=== PATIENT | male | born 1960 | race Caucasian/White ===

== ENCOUNTER 2018-02-09 20:04 | Inpatient (IN) | payer MEDICARE, MEDICAID ==
[~2018-02-09] VITALS: Ht 175.3 cm; Wt 130.7 kg
[~2018-02-09 20:04] MED LIST: ASPI-621 PO; ATOR40TA78 PO; CELE200C PO; DIGO125T81 PO; DIGO250T12 PO; FOLI-17 PO; FURO40TA6 PO; IRBE150T25 PO; MAGN400T7 PO; METH2.5T PO; METO25TA35 PO; METO25TA91 PO; NICO-487 TD; OXYC-307 PO; POTA10TA5 PO; PRAS10TA4 PO; VENL150C PO; WARF1TAB74 PO; WARF2TAB99 PO
[2018-02-09] MEDS ORDERED: AMIODARONE 900 MG in DEXTROSE 5% 500 ML IV PRN (20:11)
[2018-02-09 20:20] LABS: BASOPHILS # (AUTO) 0.03 x10^3/uL (0-0.1); BASOPHILS % (AUTO) 0 % (0-1); EOSINOPHILS # (AUTO) 0.08 x10^3/uL (0-0.4); EOSINOPHILS % (AUTO) 1 % (1-7); LYMPHOCYTES # (AUTO) 1.49 x10^3/uL (1-3.4); LYMPHOCYTES % (AUTO) 15 % (22-44); MD NO; MEAN CORPUSCULAR HEMOGLOBIN 31.9 pg (27.5-34.5); MEAN CORPUSCULAR HGB CONC 34.2 g/dL (33.2-36.2); MEAN CORPUSCULAR VOLUME 93.4 fL (81-97); MEAN PLATELET VOLUME 7.4 fL (7.4-10.4); MONOCYTES # (AUTO) 0.66 x10^3/uL (0.2-0.8); MONOCYTES % (AUTO) 7 % (2-9); NEUTROPHILS % (AUTO) 78 % (42-75); PLATELET COUNT 302 x10^3/uL (130-400); RED BLOOD COUNT 4.89 x10^6/uL (4.38-5.82); RED CELL DISTRIBUTION WIDTH 17.2 % (9.4-14.8)
[2018-02-09 20:28] LABS: INTERNATIONAL NORMALIZED RATIO 2.63 (0.93-1.1); PROTHROMBIN TIME 26.8 Seconds (9.6-11.5)
[2018-02-09] MEDS ORDERED: OXYcodone/APAP 5/325MG TABLET ONE (20:28)
[2018-02-09] MEDS ORDERED: FILTER 0.22 MICRON IV ONE (20:30)
[2018-02-09] MEDS ORDERED: OXYcodone/APAP 5/325MG TABLET PO ONE (20:30)
[2018-02-09] MEDS ORDERED: SODIUM CHLORIDE FLUSH 10ML SYR IVF ONE (20:30)
[2018-02-09 20:33] LABS: ALANINE AMINOTRANSFERASE 32 U/L (12-78); ANION GAP 10 mmol/L (5-15); CALCIUM 8.4 mg/dL (8.5-10.1); CHLORIDE 108 mmol/L (98-107); CREATININE 1.07 mg/dL (0.7-1.3)
[2018-02-09 20:37] LABS: ALKALINE PHOSPHATASE 109 U/L (45-117); TOTAL PROTEIN 7.6 g/dL (6.4-8.2); TROPONIN I < 0.015 ng/mL (0.000-0.045)
[2018-02-09] MEDS ORDERED: ALBU18HF INH (21:24)
[2018-02-09] MEDS ORDERED: ASPI-515 PO (21:24)
[2018-02-09] MEDS ORDERED: WARF2.5T73 PO (21:24)
[2018-02-09] MEDS ORDERED: FLUT1DIS5 IH (21:24)
[2018-02-09] MEDS ORDERED: PROC25SU25 PR (21:24)
[2018-02-09] MEDS ORDERED: LORA-445 PO (21:24)
[2018-02-09] MEDS ORDERED: CELE200C PO (21:24)
[2018-02-09 22:15] VITALS: BP 120/61
[2018-02-09] MEDS ORDERED: MORP30CP12 PO (23:52)
[2018-02-10] MEDS ORDERED: DOCUSATE 100 MG CAPSULE PO PRN (00:30)
[2018-02-10] MEDS ORDERED: hydrALAzine 20 MG/ML, 1ML IVPush PRN (00:30)
[2018-02-10] MEDS ORDERED: morphine SULFATE 10 MG/ML, 1ML IVPush PRN (00:30)
[2018-02-10] MEDS ORDERED: BISACODYL 10 MG SUPP PR PRN (00:30)
[2018-02-10] MEDS ORDERED: ACETAMINOPHEN 325 MG TABLET PO PRN (00:30)
[2018-02-10] MEDS ORDERED: POLYETHYLENE GLYCOL 17 GM PACKET PO PRN (00:30)
[2018-02-10] MEDS ORDERED: LORazepam 0.5MG TABLET PO SCH (00:30)
[2018-02-10] MEDS ORDERED: ATORVASTATIN 40 MG TABLET PO SCH (00:30)
[2018-02-10 00:59] LABS: FREE T4 (FREE THYROXINE) 1.13 ng/dL (0.76-1.46); THYROID STIMULATING HORMONE 0.192 mIU/L (0.358-3.740)
[2018-02-10] MEDS ORDERED: AMIODARONE 450 MG in DEXTROSE 5% 241 ML IV PRN (01:00)
[2018-02-10] MEDS ORDERED: WARFARIN MECH. VALVE PROTOCOL 2.5 to 3.5 XX PRN (01:00)
[2018-02-10 01:08] VITALS: BP 144/85
[2018-02-10] MEDS: FUROSEMIDE 40 MG TABLET PO SCH ×3 (01:12→15:15)
[2018-02-10 01:15] LABS: HEMOGLOBIN A1C 5.3 % (4.2-6.3)
[2018-02-10] MEDS ORDERED: ALBUTEROL SULFATE 2.5 MG/3 ML ONE (01:30)
[2018-02-10] MEDS ORDERED: ALBUTEROL SULFATE 2.5MG/0.5ML NPPB PRN (01:30)
[2018-02-10] MEDS ORDERED: WARFARIN 2.5 MG TABLET PO-COUM ONE ×2 (01:30→18:00)
[2018-02-10] MEDS ORDERED: ALBUTEROL SULFATE 2.5 MG/3 ML NPPB PRN (02:00)
[2018-02-10 02:35] LABS: MICROSCOPIC AUTO
[2018-02-10 02:51] LABS: CULTURE INDICATED? NO
[2018-02-10 05:07] LABS: TROPONIN I < 0.015 ng/mL (0.000-0.045)
[2018-02-10] MEDS ORDERED: METOPROLOL SUCCINATE 25 MG TAB.ER.24H PO SCH (06:00)
[2018-02-10 06:39] VITALS: BP 121/76
[2018-02-10] MEDS: OXYcodone IR 5MG TABLET PO PRN ×2 (06:44→13:30)
[2018-02-10 07:18] VITALS: BP 143/73
[2018-02-10 07:55] LABS: INTERNATIONAL NORMALIZED RATIO 2.43 (0.93-1.1); PROTHROMBIN TIME 24.8 Seconds (9.6-11.5)
[2018-02-10] MEDS ORDERED: POTASSIUM CHLORIDE 20 MEQ TAB.ER.PRT PO ONE (08:30)
[2018-02-10] MEDS ORDERED: FURO40TA6 PO (08:53)
[2018-02-10] MEDS ORDERED: PREG100C PO (08:53)
[2018-02-10] MEDS ORDERED: ASPIRIN 81 MG TABLET EC PO SCH (09:00)
[2018-02-10] MEDS ORDERED: AMIODARONE 200 MG TABLET PO SCH (09:00)
[2018-02-10] MEDS ORDERED: FOLIC ACID 1 MG TABLET PO SCH (09:00)
[2018-02-10] MEDS ORDERED: ALBUTEROL SULFATE 108 MCG INH SCH (09:00)
[2018-02-10] MEDS ORDERED: FLUTICASONE/VILANTEROL 200-25MCG/INH INH SCH (09:00)
[2018-02-10] MEDS ORDERED: MAGNESIUM OXIDE 400 MG TABLET PO SCH (09:00)
[2018-02-10] MEDS ORDERED: POTASSIUM CHLORIDE 10 MEQ TABLET.ER PO SCH (09:00)
[2018-02-10] MEDS ORDERED: OXYcodone/APAP 10/325MG TABLET PO SCH (09:00)
[2018-02-10] MEDS ORDERED: FUROSEMIDE 40 MG TABLET PO SCH (09:00)
[2018-02-10 09:44] VITALS: BP 138/83
[2018-02-10] MEDS: PREGABALIN 100 MG CAPSULE PO SCH ×2 (09:47→16:18)
[2018-02-10] MEDS ORDERED: FUROSEMIDE 40 MG/4 ML IV ONE (10:00)
[2018-02-10] MEDS ORDERED: METOPROLOL SUCCINATE 25 MG TAB.ER.24H PO ONE (10:00)
[2018-02-10] MEDS ORDERED: REGADENOSON 0.4 MG/5 ML SYRINGE ONE (10:18)
[2018-02-10 12:32] LABS: TROPONIN I < 0.015 ng/mL (0.000-0.045)
[2018-02-10] MEDS ORDERED: METO-93 PO (12:51)
[2018-02-10] MEDS ORDERED: AMIO200T42 PO ×3 (12:51)
[2018-02-10 12:58] VITALS: BP 107/63
[2018-02-10 15:15] VITALS: BP 132/83
[2018-02-11] MEDS ORDERED: METOPROLOL SUCCINATE 50 MG TAB.ER.24H PO SCH (06:00)
== END 2018-02-10 20:06 | disposition home or self-care (01) | DRG 291 ==
LOC: ED 21:54 → EDIP 21:55 → 5SO 22:06
PROVIDERS: ADMIT Internal Medicine; ATTEND Hospitalist
DX: I11.0 Hypertensive heart disease with heart failure (principal); I49.01 Ventricular fibrillation; R57.9 Shock, unspecified; E66.01 Morbid (severe) obesity due to excess calories; D68.69 Other thrombophilia; F11.20 Opioid dependence, uncomplicated; Z68.41 Body mass index [BMI] 40.0-44.9, adult; I50.43 Acute on chronic combined systolic (congestive) and diastolic (congestive) heart failure; I25.10 Atherosclerotic heart disease of native coronary artery without angina pectoris; M06.9 Rheumatoid arthritis, unspecified; J44.9 Chronic obstructive pulmonary disease, unspecified; I48.2 Chronic atrial fibrillation; G89.29 Other chronic pain; M54.9 Dorsalgia, unspecified; I25.5 Ischemic cardiomyopathy; E78.5 Hyperlipidemia, unspecified; F17.210 Nicotine dependence, cigarettes, uncomplicated; Z95.1 Presence of aortocoronary bypass graft; Z95.2 Presence of prosthetic heart valve; Z95.810 Presence of automatic (implantable) cardiac defibrillator; I25.2 Old myocardial infarction; Z79.899 Other long term (current) drug therapy; Z79.82 Long term (current) use of aspirin; Z79.01 Long term (current) use of anticoagulants
CPT/HCPCS: 36415; 71045; 78452; 80053; 81001; 83036; 83735; 83880; 84439; 84443; 84484; 85025; 85610; 85730; 93005; 93017; 93306; 94640; J1940; J2785; J7613; A9502; C9898; J0282; J7060

== ENCOUNTER 2019-10-23 11:49 | Inpatient (IN) | payer MEDICARE, MEDICAID ==
[~2019-10-23] VITALS: Ht 177.8 cm; Wt 139.3 kg
[~2019-10-23 11:49] MED LIST changes: +ALBU18HF INH; +AMIO200T42 PO; +ASPI-515 PO; -ASPI-621 PO; +ASPI81TA45 PO; +FLUT1DIS5 IH; -IRBE150T25 PO; +IRBE150T9 PO; +LORA-445 PO; -MAGN400T7 PO; +MAGN400T9 PO; +METO-93 PO; +MORP30CP12 PO; +PREG100C PO; +PROC25SU25 PR; +WARF2.5T32 PO
[2019-10-23 14:03] VITALS: BP 128/86
[2019-10-23] MEDS ORDERED: PLEASE ENTER HEIGHT AND WEIGHT MC SCH (15:30)
[2019-10-23] MEDS ORDERED: ACETAMINOPHEN 325 MG TABLET PO PRN (15:30)
[2019-10-23 15:52] LABS: INTERNATIONAL NORMALIZED RATIO 1.82 (0.93-1.1); PROTHROMBIN TIME 19.4 Seconds (9.6-11.5)
[2019-10-23] MEDS: PREGABALIN 100 MG CAPSULE PO SCH ×2 (16:00→20:47)
[2019-10-23] MEDS: MORPHINE SULFATE 4 MG/ML, 1ML IVPush PRN (17:32)
[2019-10-23] MEDS ORDERED: WARFARIN 2 MG TABLET PO-COUM ONE (18:00)
[2019-10-23 18:46] VITALS: BP 96/61
[2019-10-23] MEDS: ALBUTEROL/IPRATROPIUM 2.5MG/0.5MG, 3 ML NPPB SCH (19:49)
[2019-10-23 20:17] VITALS: BP 112/75
[2019-10-23] MEDS: AMIODARONE 200 MG TABLET PO SCH (20:21)
[2019-10-23] MEDS: POTASSIUM CHLORIDE 10 MEQ TABLET.ER PO SCH (20:21)
[2019-10-23] MEDS: LORazepam 1MG TABLET PO SCH (20:21)
[2019-10-23] MEDS ORDERED: ATORVASTATIN 40 MG TABLET PO SCH (21:00)
[2019-10-24] VITALS (7 sets, daily range): BP systolic 97–142; BP diastolic 69–91
[2019-10-24 05:16] LABS: BASOPHILS # (AUTO) 0.04 x10^3/uL (0-0.1); BASOPHILS % (AUTO) 1 % (0-1); EOSINOPHILS # (AUTO) 0.29 x10^3/uL (0-0.4); EOSINOPHILS % (AUTO) 6 % (1-7); LYMPHOCYTES # (AUTO) 1.31 x10^3/uL (1-3.4); LYMPHOCYTES % (AUTO) 26 % (22-44); MD NO; MEAN CORPUSCULAR HEMOGLOBIN 32.8 pg (27.5-34.5); MEAN CORPUSCULAR VOLUME 96.5 fL (81-97); MEAN PLATELET VOLUME 8.6 fL (7.4-10.4); MONOCYTES # (AUTO) 0.43 x10^3/uL (0.2-0.8); MONOCYTES % (AUTO) 9 % (2-9); NEUTROPHILS # (AUTO) 2.98 x10^3/uL (1.8-6.8); NEUTROPHILS % (AUTO) 59 % (42-75); PLATELET COUNT 170 x10^3/uL (130-400); RED BLOOD COUNT 4.23 x10^6/uL (4.38-5.82); RED CELL DISTRIBUTION WIDTH 13.7 % (9.4-14.8)
[2019-10-24 05:26] LABS: INTERNATIONAL NORMALIZED RATIO 1.83 (0.93-1.1); PROTHROMBIN TIME 19.5 Seconds (9.6-11.5)
[2019-10-24 05:28] LABS: ANION GAP 5 mmol/L (5-15); CALCIUM 8.7 mg/dL (8.5-10.1); CHLORIDE 108 mmol/L (98-107); CREATININE 1.04 mg/dL (0.7-1.3)
[2019-10-24] MEDS: ASPIRIN 81 MG TABLET EC PO SCH (05:52)
[2019-10-24] MEDS: METOPROLOL SUCCINATE 25 MG TAB.ER.24H PO SCH (05:52)
[2019-10-24] MEDS: MORPHINE SULFATE 4 MG/ML, 1ML IVPush PRN (06:01)
[2019-10-24] MEDS ORDERED: IRBESARTAN 150 MG TABLET PO SCH (09:00)
[2019-10-24] MEDS: WARFARIN MECH. VALVE PROTOCOL 2.5 to 3.5 XX SCH (09:00)
[2019-10-24] MEDS: ALBUTEROL/IPRATROPIUM 2.5MG/0.5MG, 3 ML NPPB SCH ×2 (09:00→19:04)
[2019-10-24] MEDS ORDERED: LORazepam 1MG TABLET PO ONE (09:30)
[2019-10-24] MEDS: AMIODARONE 200 MG TABLET PO SCH ×2 (09:36→22:33)
[2019-10-24] MEDS: POTASSIUM CHLORIDE 10 MEQ TABLET.ER PO SCH ×2 (09:37→21:40)
[2019-10-24] MEDS: CLOPIDOGREL 75 MG TABLET PO SCH (09:38)
[2019-10-24] MEDS: MAGNESIUM OXIDE 400 MG TABLET PO SCH (09:38)
[2019-10-24] MEDS: FOLIC ACID 1 MG TABLET PO SCH (09:38)
[2019-10-24] MEDS: PREGABALIN 100 MG CAPSULE PO SCH ×3 (09:39→21:40)
[2019-10-24] MEDS ORDERED: MAALOX/HYOSCYAMINE/LIDOCAINE 45 ML BTL PO ONE (11:00)
[2019-10-24] MEDS ORDERED: VENTOLIN INH PRN (11:30)
[2019-10-24] MEDS: OXYcodone IR 5MG TABLET PO PRN (11:55)
[2019-10-24] MEDS ORDERED: HEPARIN 5,000 UNITS/ML, 1ML IV ONE (12:00)
[2019-10-24] MEDS ORDERED: WARFARIN MODERAT DOSE PROTOCOL XX SCH (12:00)
[2019-10-24] MEDS ORDERED: HEPARIN 5,000 UNITS/ML, 1ML IV PRN (12:00)
[2019-10-24] MEDS ORDERED: HEPARIN 25,000 UNITS/250ML PMX 250 ML IV PRN (12:00)
[2019-10-24] MEDS: Enoxaparin 1 mg/kg protocol SQ SCH (12:30)
[2019-10-24] MEDS ORDERED: ENOXAPARIN 150 MG/ML SQ SCH (14:00)
[2019-10-24] MEDS: FUROSEMIDE 40 MG TABLET PO SCH (14:37)
[2019-10-24] MEDS: ENOXAPARIN 60 MG/0.6 ML SQ SCH (14:37)
[2019-10-24] MEDS: ENOXAPARIN 80 MG/0.8 ML SQ SCH (14:37)
[2019-10-24] MEDS ORDERED: WARFARIN 7.5 MG TABLET PO-COUM ONE (18:00)
[2019-10-24] MEDS: LORazepam 1MG TABLET PO SCH (21:40)
[2019-10-24] MEDS: ATORVASTATIN 80 MG TABLET PO SCH (21:40)
[2019-10-25] MEDS: Enoxaparin 1 mg/kg protocol SQ SCH (00:30)
[2019-10-25 02:11] VITALS: BP 93/61
[2019-10-25] MEDS: ENOXAPARIN 80 MG/0.8 ML SQ SCH (02:47)
[2019-10-25] MEDS: ENOXAPARIN 60 MG/0.6 ML SQ SCH (02:47)
[2019-10-25 05:22] VITALS: BP 113/77
[2019-10-25] MEDS: METOPROLOL SUCCINATE 25 MG TAB.ER.24H PO SCH (05:26)
[2019-10-25] MEDS: ASPIRIN 81 MG TABLET EC PO SCH (05:26)
[2019-10-25 07:10] VITALS: BP 106/75
[2019-10-25] MEDS: AMIODARONE 200 MG TABLET PO SCH ×2 (08:15→21:07)
[2019-10-25] MEDS: CLOPIDOGREL 75 MG TABLET PO SCH (08:15)
[2019-10-25] MEDS: PREGABALIN 100 MG CAPSULE PO SCH ×3 (08:15→21:08)
[2019-10-25] MEDS: OXYcodone IR 5MG TABLET PO PRN ×3 (08:16→22:02)
[2019-10-25] MEDS: LORazepam 1MG TABLET PO PRN (08:16)
[2019-10-25] MEDS: MAGNESIUM OXIDE 400 MG TABLET PO SCH (08:16)
[2019-10-25] MEDS: POTASSIUM CHLORIDE 10 MEQ TABLET.ER PO SCH ×2 (08:17→21:07)
[2019-10-25 08:40] LABS: INTERNATIONAL NORMALIZED RATIO 2.99 (0.93-1.1)
[2019-10-25 08:42] LABS: ANION GAP 4 mmol/L (5-15); CALCIUM 8.7 mg/dL (8.5-10.1); CHLORIDE 109 mmol/L (98-107); CREATININE 1.06 mg/dL (0.7-1.3)
[2019-10-25] MEDS: WARFARIN MECH. VALVE PROTOCOL 2.5 to 3.5 XX SCH (09:00)
[2019-10-25] MEDS: ALBUTEROL/IPRATROPIUM 2.5MG/0.5MG, 3 ML NPPB SCH ×2 (09:00→20:12)
[2019-10-25] MEDS ORDERED: PROPOFOL 10 MG/ML, 20ML ONE (13:02)
[2019-10-25 14:25] VITALS: BP 123/86
[2019-10-25] MEDS: FUROSEMIDE 40 MG TABLET PO SCH (14:49)
[2019-10-25] MEDS: FOLIC ACID 1 MG TABLET PO SCH (14:49)
[2019-10-25] MEDS ORDERED: OMNIPAQUE 350 MG/ML, 100ML BOTTLE ONE (17:55)
[2019-10-25] MEDS ORDERED: WARFARIN 2.5 MG TABLET PO-COUM ONE (18:00)
[2019-10-25 21:06] VITALS: BP 106/68
[2019-10-25] MEDS: ATORVASTATIN 80 MG TABLET PO SCH (21:07)
[2019-10-25] MEDS: LORazepam 1MG TABLET PO SCH (21:08)
[2019-10-25] MEDS: IRBESARTAN 150 MG TABLET PO SCH (21:10)
[2019-10-26] VITALS (8 sets, daily range): BP systolic 83–140; BP diastolic 50–86
[2019-10-26] MEDS: OXYcodone IR 5MG TABLET PO PRN ×3 (04:22→16:19)
[2019-10-26 04:48] LABS: INTERNATIONAL NORMALIZED RATIO 3.73 (0.93-1.1); PROTHROMBIN TIME 40.1 Seconds (9.6-11.5)
[2019-10-26] MEDS: METOPROLOL SUCCINATE 25 MG TAB.ER.24H PO SCH (05:55)
[2019-10-26] MEDS: ASPIRIN 81 MG TABLET EC PO SCH (05:55)
[2019-10-26] MEDS: ALBUTEROL/IPRATROPIUM 2.5MG/0.5MG, 3 ML NPPB SCH ×2 (07:00→20:46)
[2019-10-26 07:30] LABS: ANION GAP 2 mmol/L (5-15); CALCIUM 8.5 mg/dL (8.5-10.1); CHLORIDE 107 mmol/L (98-107); CREATININE 1.25 mg/dL (0.7-1.3)
[2019-10-26] MEDS ORDERED: PHYTONADIONE 5 MG TABLET PO ONE (08:00)
[2019-10-26] MEDS: FOLIC ACID 1 MG TABLET PO SCH (08:55)
[2019-10-26] MEDS: PREGABALIN 100 MG CAPSULE PO SCH ×3 (08:55→21:19)
[2019-10-26] MEDS: AMIODARONE 200 MG TABLET PO SCH ×2 (08:56→21:18)
[2019-10-26] MEDS: POTASSIUM CHLORIDE 10 MEQ TABLET.ER PO SCH (08:56)
[2019-10-26] MEDS: MAGNESIUM OXIDE 400 MG TABLET PO SCH (08:56)
[2019-10-26] MEDS: CLOPIDOGREL 75 MG TABLET PO SCH (08:56)
[2019-10-26] MEDS: WARFARIN MECH. VALVE PROTOCOL 2.5 to 3.5 XX SCH (09:00)
[2019-10-26] MEDS: LORazepam 1MG TABLET PO PRN (09:06)
[2019-10-26] MEDS: LIDODERM 5% PATCH TD PRN (12:20)
[2019-10-26] MEDS: FUROSEMIDE 40 MG TABLET PO SCH (14:03)
[2019-10-26] MEDS: LORazepam 1MG TABLET PO SCH (21:18)
[2019-10-26] MEDS: ATORVASTATIN 80 MG TABLET PO SCH (21:19)
[2019-10-26] MEDS: IRBESARTAN 150 MG TABLET PO SCH (21:19)
[2019-10-27 00:18] VITALS: BP 112/73
[2019-10-27 04:58] LABS: BASOPHILS # (AUTO) 0.02 x10^3/uL (0-0.1); BASOPHILS % (AUTO) 1 % (0-1); EOSINOPHILS # (AUTO) 0.38 x10^3/uL (0-0.4); EOSINOPHILS % (AUTO) 8 % (1-7); LYMPHOCYTES # (AUTO) 1.04 x10^3/uL (1-3.4); LYMPHOCYTES % (AUTO) 23 % (22-44); MD NO; MEAN CORPUSCULAR HEMOGLOBIN 32.7 pg (27.5-34.5); MEAN CORPUSCULAR HGB CONC 33.6 g/dL (33.2-36.2); MEAN CORPUSCULAR VOLUME 97.3 fL (81-97); MEAN PLATELET VOLUME 8.6 fL (7.4-10.4); MONOCYTES # (AUTO) 0.56 x10^3/uL (0.2-0.8); MONOCYTES % (AUTO) 13 % (2-9); NEUTROPHILS % (AUTO) 56 % (42-75); PLATELET COUNT 175 x10^3/uL (130-400); RED BLOOD COUNT 4.02 x10^6/uL (4.38-5.82); RED CELL DISTRIBUTION WIDTH 14.1 % (9.4-14.8)
[2019-10-27 05:01] LABS: INTERNATIONAL NORMALIZED RATIO 2.16 (0.93-1.1); PROTHROMBIN TIME 23.1 Seconds (9.6-11.5)
[2019-10-27 05:11] VITALS: BP 91/57
[2019-10-27 05:13] VITALS: BP 100/74
[2019-10-27] MEDS: ASPIRIN 81 MG TABLET EC PO SCH (05:15)
[2019-10-27] MEDS: METOPROLOL SUCCINATE 25 MG TAB.ER.24H PO SCH (05:19)
[2019-10-27 06:29] LABS: ANION GAP 6 mmol/L (5-15); CALCIUM 8.3 mg/dL (8.5-10.1); CHLORIDE 107 mmol/L (98-107); CREATININE 1.33 mg/dL (0.7-1.3)
[2019-10-27 07:50] VITALS: BP 118/61
[2019-10-27] MEDS: WARFARIN MECH. VALVE PROTOCOL 2.5 to 3.5 XX SCH (09:00)
[2019-10-27] MEDS: ALBUTEROL/IPRATROPIUM 2.5MG/0.5MG, 3 ML NPPB SCH ×3 (09:00→21:28)
[2019-10-27] MEDS: FOLIC ACID 1 MG TABLET PO SCH (09:12)
[2019-10-27] MEDS: AMIODARONE 200 MG TABLET PO SCH ×2 (09:12→19:58)
[2019-10-27] MEDS: MAGNESIUM OXIDE 400 MG TABLET PO SCH (09:12)
[2019-10-27] MEDS: PREGABALIN 100 MG CAPSULE PO SCH ×3 (09:12→19:59)
[2019-10-27] MEDS: CLOPIDOGREL 75 MG TABLET PO SCH (09:13)
[2019-10-27] MEDS: LORazepam 1MG TABLET PO PRN (09:13)
[2019-10-27] MEDS: OXYcodone IR 5MG TABLET PO PRN ×3 (09:23→14:33)
[2019-10-27] MEDS ORDERED: LIDOCAINE 2%, 20ML ONE (10:34)
[2019-10-27] MEDS ORDERED: CEFAZOLIN 1,000 MG ONE ×4 (10:34→11:29)
[2019-10-27] MEDS ORDERED: CEFAZOLIN PMX 1GM/50ML 50 ML ONE (10:34)
[2019-10-27] MEDS ORDERED: FENTANYL PF 250 MCG/5ML ONE (10:56)
[2019-10-27] MEDS ORDERED: PROPOFOL 50 ML ONE ×2 (10:56→11:38)
[2019-10-27] MEDS ORDERED: EPINEPHRINE 1 MG/ML, 1ML ONE (11:11)
[2019-10-27] MEDS ORDERED: MIDAZOLAM 1 MG/ML, 2ML ONE (11:13)
[2019-10-27] MEDS ORDERED: PROPOFOL 10 MG/ML, 20ML ONE (11:29)
[2019-10-27] MEDS ORDERED: ONDANSETRON 2MG/ML, 2ML IV PRN (12:00)
[2019-10-27] MEDS ORDERED: FENTANYL PF 100 MCG/2ML IV PRN (12:00)
[2019-10-27] MEDS ORDERED: LABETALOL 5MG/ML, 20ML IV PRN (12:00)
[2019-10-27] MEDS ORDERED: PROMETHAZINE 25 MG/ML, 1ML IV PRN (12:00)
[2019-10-27] MEDS ORDERED: HYDROmorphone 2 MG/ML, 1ML IVPush PRN (12:00)
[2019-10-27] MEDS ORDERED: DIAZEPAM 5 MG/ML, 2ML IVPush PRN (12:00)
[2019-10-27] MEDS ORDERED: EPHEDRINE 50 MG/ML, 1ML IM PRN (12:00)
[2019-10-27] MEDS ORDERED: ONDANSETRON ODT 8 MG PO PRN (12:00)
[2019-10-27] MEDS ORDERED: MIDAZOLAM 1 MG/ML, 2ML IV PRN (12:00)
[2019-10-27] MEDS ORDERED: EPHEDRINE 50 MG/ML, 1ML IVPush PRN (12:00)
[2019-10-27] MEDS ORDERED: DIPHENHYDRAMINE 50 MG/ML, 1ML IVPush PRN (12:00)
[2019-10-27] MEDS ORDERED: OXYcodone 5 MG/5 ML ORAL.SOL UDC PO PRN (12:00)
[2019-10-27] MEDS ORDERED: HYDROcodone/APAP 5/325 TABLET PO PRN (13:30)
[2019-10-27] MEDS ORDERED: HOLD MEDICATION MC PRN (13:30)
[2019-10-27] MEDS: FUROSEMIDE 40 MG TABLET PO SCH (14:43)
[2019-10-27] MEDS ORDERED: WARFARIN 2.5 MG TABLET PO-COUM ONE (18:00)
[2019-10-27] MEDS: BUDESONIDE 0.5 MG/2 ML INHA INH SCH (18:50)
[2019-10-27] MEDS: LORazepam 1MG TABLET PO SCH (19:57)
[2019-10-27] MEDS: IRBESARTAN 150 MG TABLET PO SCH (19:58)
[2019-10-27] MEDS: ATORVASTATIN 80 MG TABLET PO SCH (19:59)
[2019-10-27] MEDS: CEFAZOLIN PMX 1GM/50ML 50 ML IVPB SCH (19:59)
[2019-10-27] MEDS: LIDODERM 5% PATCH TD PRN (20:45)
[2019-10-28] MEDS ORDERED: MEPERIDINE/PF 25MG/0.5ML IM PRN (02:30)
[2019-10-28] MEDS ORDERED: MEPERIDINE/PF 25MG/ML,1ML IM PRN (02:36)
[2019-10-28] MEDS: CEFAZOLIN PMX 1GM/50ML 50 ML IVPB SCH ×2 (03:10→13:24)
[2019-10-28 04:47] LABS: INTERNATIONAL NORMALIZED RATIO 1.48 (0.93-1.1); PROTHROMBIN TIME 15.7 Seconds (9.6-11.5)
[2019-10-28 04:50] LABS: ANION GAP 6 mmol/L (5-15); CALCIUM 8.4 mg/dL (8.5-10.1); CHLORIDE 106 mmol/L (98-107); CREATININE 1.25 mg/dL (0.7-1.3)
[2019-10-28] MEDS: ASPIRIN 81 MG TABLET EC PO SCH (06:00)
[2019-10-28 06:19] VITALS: BP 134/86
[2019-10-28] MEDS: METOPROLOL SUCCINATE 25 MG TAB.ER.24H PO SCH (06:23)
[2019-10-28] MEDS: AMIODARONE 200 MG TABLET PO SCH ×2 (08:28→21:15)
[2019-10-28] MEDS: PREGABALIN 100 MG CAPSULE PO SCH ×3 (08:29→21:00)
[2019-10-28] MEDS: MAGNESIUM OXIDE 400 MG TABLET PO SCH (08:29)
[2019-10-28] MEDS: FOLIC ACID 1 MG TABLET PO SCH (08:29)
[2019-10-28] MEDS ORDERED: OXYcodone IR 5MG TABLET PO PRN ×2 (08:30→12:00)
[2019-10-28] MEDS: CLOPIDOGREL 75 MG TABLET PO SCH (08:32)
[2019-10-28] MEDS: WARFARIN MECH. VALVE PROTOCOL 2.5 to 3.5 XX SCH (08:35)
[2019-10-28] MEDS: Enoxaparin 1 mg/kg protocol SQ SCH ×2 (09:00→21:00)
[2019-10-28] MEDS: ENOXAPARIN 60 MG/0.6 ML SQ SCH ×2 (09:54→21:15)
[2019-10-28] MEDS: ENOXAPARIN 80 MG/0.8 ML SQ SCH ×2 (09:55→21:15)
[2019-10-28] MEDS: MEPERIDINE 50 MG TABLET PO PRN ×3 (10:35→22:37)
[2019-10-28] MEDS: ALBUTEROL/IPRATROPIUM 2.5MG/0.5MG, 3 ML NPPB SCH ×2 (11:00→22:43)
[2019-10-28] MEDS: BUDESONIDE 0.5 MG/2 ML INHA INH SCH ×2 (11:00→22:43)
[2019-10-28] MEDS: FUROSEMIDE 40 MG TABLET PO SCH (13:24)
[2019-10-28] MEDS ORDERED: WARFARIN 5 MG TABLET PO-COUM ONE (18:00)
[2019-10-28] MEDS: WARFARIN 1 MG TABLET PO-COUM SCH (18:07)
[2019-10-28] MEDS: ATORVASTATIN 80 MG TABLET PO SCH (21:14)
[2019-10-28] MEDS: IRBESARTAN 150 MG TABLET PO SCH (21:14)
[2019-10-28] MEDS: LORazepam 1MG TABLET PO SCH (22:38)
[2019-10-29 04:28] LABS: INTERNATIONAL NORMALIZED RATIO 1.44 (0.93-1.1); PROTHROMBIN TIME 15.3 Seconds (9.6-11.5)
[2019-10-29 04:29] LABS: ANION GAP 6 mmol/L (5-15); CALCIUM 8.3 mg/dL (8.5-10.1); CHLORIDE 108 mmol/L (98-107); CREATININE 1.18 mg/dL (0.7-1.3)
[2019-10-29] MEDS: ASPIRIN 81 MG TABLET EC PO SCH (06:31)
[2019-10-29] MEDS: MEPERIDINE 50 MG TABLET PO PRN ×3 (06:31→18:29)
[2019-10-29] MEDS: METOPROLOL SUCCINATE 25 MG TAB.ER.24H PO SCH (06:31)
[2019-10-29] MEDS: Enoxaparin 1 mg/kg protocol SQ SCH (09:00)
[2019-10-29] MEDS: BUDESONIDE 0.5 MG/2 ML INHA INH SCH (09:00)
[2019-10-29] MEDS: ENOXAPARIN 60 MG/0.6 ML SQ SCH ×2 (09:14→09:15)
[2019-10-29] MEDS: ENOXAPARIN 80 MG/0.8 ML SQ SCH ×2 (09:15→21:41)
[2019-10-29] MEDS: CLOPIDOGREL 75 MG TABLET PO SCH (09:16)
[2019-10-29] MEDS: PREGABALIN 100 MG CAPSULE PO SCH ×3 (09:16→21:46)
[2019-10-29] MEDS: FOLIC ACID 1 MG TABLET PO SCH (09:16)
[2019-10-29] MEDS: MAGNESIUM OXIDE 400 MG TABLET PO SCH (09:16)
[2019-10-29] MEDS: AMIODARONE 200 MG TABLET PO SCH ×2 (11:27→21:44)
[2019-10-29] MEDS ORDERED: BUDESONIDE 0.5 MG/2 ML INHA INH PRN (11:30)
[2019-10-29] MEDS: FUROSEMIDE 40 MG TABLET PO SCH (14:23)
[2019-10-29] MEDS: WARFARIN 1 MG TABLET PO-COUM SCH (18:28)
[2019-10-29 19:16] VITALS: BP 131/74
[2019-10-29] MEDS: SALMETEROL INH SCH (21:00)
[2019-10-29] MEDS: FLUTICASONE PROPIONATE INH SCH (21:00)
[2019-10-29] MEDS: ATORVASTATIN 80 MG TABLET PO SCH (21:42)
[2019-10-29] MEDS: LORazepam 1MG TABLET PO SCH (21:43)
[2019-10-29] MEDS: IRBESARTAN 150 MG TABLET PO SCH (21:46)
[2019-10-30 00:58] VITALS: BP 117/67
[2019-10-30] MEDS: MEPERIDINE 50 MG TABLET PO PRN ×3 (01:09→17:39)
[2019-10-30 05:11] LABS: INTERNATIONAL NORMALIZED RATIO 1.33 (0.93-1.1); PROTHROMBIN TIME 14.1 Seconds (9.6-11.5)
[2019-10-30 05:17] LABS: ANION GAP 8 mmol/L (5-15); CALCIUM 8.4 mg/dL (8.5-10.1); CHLORIDE 105 mmol/L (98-107); CREATININE 1.11 mg/dL (0.7-1.3)
[2019-10-30 05:38] LABS: BASOPHILS # (AUTO) 0.03 x10^3/uL (0-0.1); BASOPHILS % (AUTO) 1 % (0-1); EOSINOPHILS % (AUTO) 6 % (1-7); LYMPHOCYTES # (AUTO) 1.35 x10^3/uL (1-3.4); LYMPHOCYTES % (AUTO) 22 % (22-44); MD SCAN; MEAN CORPUSCULAR HEMOGLOBIN 32.9 pg (27.5-34.5); MEAN CORPUSCULAR HGB CONC 33.8 g/dL (33.2-36.2); MEAN CORPUSCULAR VOLUME 97.3 fL (81-97); MEAN PLATELET VOLUME 8.6 fL (7.4-10.4); MONOCYTES # (AUTO) 0.77 x10^3/uL (0.2-0.8); MONOCYTES % (AUTO) 12 % (2-9); NEUTROPHILS # (AUTO) 3.75 x10^3/uL (1.8-6.8); NEUTROPHILS % (AUTO) 59 % (42-75); PLATELET COUNT 212 x10^3/uL (130-400); RED BLOOD COUNT 3.77 x10^6/uL (4.38-5.82); RED CELL DISTRIBUTION WIDTH 13.7 % (9.4-14.8)
[2019-10-30] MEDS: ASPIRIN 81 MG TABLET EC PO SCH (06:16)
[2019-10-30] MEDS: METOPROLOL SUCCINATE 25 MG TAB.ER.24H PO SCH (06:17)
[2019-10-30 06:45] VITALS: BP 111/73
[2019-10-30 07:23] LABS: ALBUMIN 3.1 g/dL (3.4-5.0); BILIRUBIN, DIRECT 0.3 mg/dL (0.1-0.2)
[2019-10-30 07:25] LABS: BILIRUBIN,INDIRECT 0.8 mg/dL (0.0-2.0); BILIRUBIN,TOTAL 1.1 mg/dL (0.2-1.0); TOTAL PROTEIN 6.3 g/dL (6.4-8.2)
[2019-10-30] MEDS: BUDESONIDE 0.5 MG/2 ML INHA INH SCH ×2 (08:16→18:53)
[2019-10-30] MEDS: ENOXAPARIN 60 MG/0.6 ML SQ SCH ×2 (09:49→21:27)
[2019-10-30] MEDS: ENOXAPARIN 80 MG/0.8 ML SQ SCH ×2 (09:49→21:27)
[2019-10-30] MEDS: AMIODARONE 200 MG TABLET PO SCH ×2 (09:50→21:25)
[2019-10-30] MEDS: CLOPIDOGREL 75 MG TABLET PO SCH (09:50)
[2019-10-30] MEDS: MAGNESIUM OXIDE 400 MG TABLET PO SCH (09:50)
[2019-10-30] MEDS: PREGABALIN 100 MG CAPSULE PO SCH ×3 (09:50→21:25)
[2019-10-30] MEDS: FOLIC ACID 1 MG TABLET PO SCH (09:50)
[2019-10-30] MEDS: FLUTICASONE PROPIONATE INH SCH ×2 (09:51→21:00)
[2019-10-30] MEDS: SALMETEROL INH SCH ×2 (09:51→21:00)
[2019-10-30 12:58] VITALS: BP 101/67
[2019-10-30] MEDS: FUROSEMIDE 40 MG TABLET PO SCH (13:46)
[2019-10-30] MEDS: WARFARIN 1 MG TABLET PO-COUM SCH (18:22)
[2019-10-30 18:42] VITALS: BP 133/73
[2019-10-30] MEDS: ALBUTEROL/IPRATROPIUM 2.5MG/0.5MG, 3 ML NPPB PRN (18:54)
[2019-10-30] MEDS: IRBESARTAN 150 MG TABLET PO SCH (21:26)
[2019-10-30] MEDS: LORazepam 1MG TABLET PO SCH (21:27)
[2019-10-30] MEDS: ATORVASTATIN 80 MG TABLET PO SCH (21:27)
[2019-10-30 21:29] VITALS: BP 111/77
[2019-10-31] VITALS (7 sets, daily range): BP systolic 76–111; BP diastolic 45–68
[2019-10-31] MEDS: MEPERIDINE 50 MG TABLET PO PRN ×2 (00:23→18:33)
[2019-10-31] MEDS ORDERED: SODIUM CHLORIDE 0.9%, 500ML IVBOLUS ONE (04:00)
[2019-10-31 04:59] LABS: INTERNATIONAL NORMALIZED RATIO 1.35 (0.93-1.1); PROTHROMBIN TIME 14.4 Seconds (9.6-11.5)
[2019-10-31] MEDS: METOPROLOL SUCCINATE 25 MG TAB.ER.24H PO SCH (05:00)
[2019-10-31 05:01] LABS: BASOPHILS # (AUTO) 0.02 x10^3/uL (0-0.1); BASOPHILS % (AUTO) 0 % (0-1); EOSINOPHILS # (AUTO) 0.34 x10^3/uL (0-0.4); EOSINOPHILS % (AUTO) 6 % (1-7); LYMPHOCYTES # (AUTO) 1.07 x10^3/uL (1-3.4); LYMPHOCYTES % (AUTO) 19 % (22-44); MD NO; MEAN CORPUSCULAR HEMOGLOBIN 32.2 pg (27.5-34.5); MEAN CORPUSCULAR HGB CONC 33.1 g/dL (33.2-36.2); MEAN CORPUSCULAR VOLUME 97.3 fL (81-97); MEAN PLATELET VOLUME 7.5 fL (7.4-10.4); MONOCYTES # (AUTO) 0.72 x10^3/uL (0.2-0.8); MONOCYTES % (AUTO) 13 % (2-9); NEUTROPHILS # (AUTO) 3.38 x10^3/uL (1.8-6.8); NEUTROPHILS % (AUTO) 61 % (42-75); PLATELET COUNT 173 x10^3/uL (130-400); RED BLOOD COUNT 3.34 x10^6/uL (4.38-5.82); RED CELL DISTRIBUTION WIDTH 13.7 % (9.4-14.8)
[2019-10-31 05:04] LABS: ANION GAP 5 mmol/L (5-15); CHLORIDE 106 mmol/L (98-107)
[2019-10-31 05:06] LABS: CREATININE 1.09 mg/dL (0.7-1.3)
[2019-10-31] MEDS: ASPIRIN 81 MG TABLET EC PO SCH (06:15)
[2019-10-31] MEDS: ENOXAPARIN 80 MG/0.8 ML SQ SCH ×2 (07:25→15:24)
[2019-10-31] MEDS: ENOXAPARIN 60 MG/0.6 ML SQ SCH ×2 (07:25→15:24)
[2019-10-31] MEDS ORDERED: LABETALOL 5MG/ML, 20ML IV PRN (08:30)
[2019-10-31] MEDS ORDERED: FENTANYL PF 100 MCG/2ML IV PRN (08:30)
[2019-10-31] MEDS ORDERED: ONDANSETRON 2MG/ML, 2ML IV PRN (08:30)
[2019-10-31] MEDS ORDERED: hydrALAzine 20 MG/ML, 1ML IV PRN (08:30)
[2019-10-31] MEDS ORDERED: OXYcodone 5 MG/5 ML ORAL.SOL UDC PO PRN (08:30)
[2019-10-31] MEDS ORDERED: MEPERIDINE/PF 25MG/ML,1ML IVPush PRN (08:30)
[2019-10-31] MEDS ORDERED: ACETAMINOPHEN 325 MG TABLET PO PRN (08:30)
[2019-10-31] MEDS ORDERED: EPHEDRINE 50 MG/ML, 1ML IVPush PRN (08:30)
[2019-10-31] MEDS: MAGNESIUM OXIDE 400 MG TABLET PO SCH (09:00)
[2019-10-31] MEDS: BUDESONIDE 0.5 MG/2 ML INHA INH SCH ×2 (09:00→20:11)
[2019-10-31] MEDS: AMIODARONE 200 MG TABLET PO SCH ×2 (09:00→21:02)
[2019-10-31] MEDS: FOLIC ACID 1 MG TABLET PO SCH (09:00)
[2019-10-31] MEDS: PREGABALIN 100 MG CAPSULE PO SCH ×3 (09:00→21:02)
[2019-10-31] MEDS: SALMETEROL INH SCH ×2 (09:19→21:00)
[2019-10-31] MEDS: FLUTICASONE PROPIONATE INH SCH ×2 (09:19→21:00)
[2019-10-31] MEDS ORDERED: CEFAZOLIN 1,000 MG ONE ×4 (09:23→10:11)
[2019-10-31] MEDS ORDERED: LIDOCAINE 1%, 20ML ONE (09:23)
[2019-10-31] MEDS ORDERED: FENTANYL PF 250 MCG/5ML ONE (09:58)
[2019-10-31] MEDS ORDERED: MIDAZOLAM 1 MG/ML, 2ML ONE (09:58)
[2019-10-31] MEDS ORDERED: ONDANSETRON 2MG/ML, 2ML ONE (10:31)
[2019-10-31] MEDS ORDERED: DEXAMETHASONE 4 MG/ML, 1ML ONE ×2 (10:31)
[2019-10-31] MEDS ORDERED: EPINEPHRINE 1 MG/ML, 1ML ONE (10:34)
[2019-10-31] MEDS ORDERED: OXYcodone 5 MG/5 ML ORAL.SOL UDC ONE (11:59)
[2019-10-31] MEDS ORDERED: HYDROmorphone 1 MG/ML, 1ML INJ ONE (11:59)
[2019-10-31] MEDS ORDERED: HOLD MEDICATION MC PRN (12:00)
[2019-10-31] MEDS: HYDROmorphone 2 MG/ML, 1ML IVPush PRN ×2 (12:00→12:15)
[2019-10-31] MEDS ORDERED: ACETAMINOPHEN 650 MG/20.3 ML UDC ONE (12:24)
[2019-10-31] MEDS ORDERED: ACETAMINOPHEN 325 MG TABLET ONE (12:24)
[2019-10-31] MEDS: FUROSEMIDE 40 MG TABLET PO SCH (14:52)
[2019-10-31] MEDS: CLOPIDOGREL 75 MG TABLET PO SCH (14:52)
[2019-10-31] MEDS: WARFARIN 1 MG TABLET PO-COUM SCH (16:18)
[2019-10-31] MEDS ORDERED: WARFARIN 2.5 MG TABLET PO-COUM SCH (18:00)
[2019-10-31] MEDS: CEFAZOLIN PMX 1GM/50ML 50 ML IVPB SCH (18:45)
[2019-10-31] MEDS: SODIUM CHLORIDE FLUSH 10ML SYR IVF SCH (21:00)
[2019-10-31] MEDS: IRBESARTAN 150 MG TABLET PO SCH (21:02)
[2019-10-31] MEDS: LORazepam 1MG TABLET PO SCH (21:02)
[2019-10-31] MEDS: ATORVASTATIN 80 MG TABLET PO SCH (21:02)
[2019-10-31] MEDS: LIDODERM 5% PATCH TD PRN (21:03)
[2019-11-01 01:32] VITALS: BP 97/59
[2019-11-01 01:44] VITALS: BP 105/68
[2019-11-01] MEDS: CEFAZOLIN PMX 1GM/50ML 50 ML IVPB SCH ×2 (03:07→10:52)
[2019-11-01 05:06] VITALS: BP 111/68
[2019-11-01] MEDS: ASPIRIN 81 MG TABLET EC PO SCH (05:08)
[2019-11-01] MEDS: METOPROLOL SUCCINATE 25 MG TAB.ER.24H PO SCH (05:08)
[2019-11-01 05:23] LABS: INTERNATIONAL NORMALIZED RATIO 1.37 (0.93-1.1); PROTHROMBIN TIME 14.6 Seconds (9.6-11.5)
[2019-11-01 05:31] LABS: BASOPHILS # (AUTO) 0.01 x10^3/uL (0-0.1); BASOPHILS % (AUTO) 0 % (0-1); EOSINOPHILS % (AUTO) 0 % (1-7); LYMPHOCYTES # (AUTO) 0.54 x10^3/uL (1-3.4); LYMPHOCYTES % (AUTO) 7 % (22-44); MD NO; MEAN CORPUSCULAR HEMOGLOBIN 32.8 pg (27.5-34.5); MEAN CORPUSCULAR HGB CONC 33.9 g/dL (33.2-36.2); MEAN CORPUSCULAR VOLUME 96.8 fL (81-97); MEAN PLATELET VOLUME 8.3 fL (7.4-10.4); MONOCYTES # (AUTO) 0.54 x10^3/uL (0.2-0.8); MONOCYTES % (AUTO) 7 % (2-9); NEUTROPHILS # (AUTO) 6.92 x10^3/uL (1.8-6.8); NEUTROPHILS % (AUTO) 86 % (42-75); PLATELET COUNT 180 x10^3/uL (130-400); RED BLOOD COUNT 2.97 x10^6/uL (4.38-5.82); RED CELL DISTRIBUTION WIDTH 13.7 % (9.4-14.8)
[2019-11-01 06:48] VITALS: BP 118/77
[2019-11-01] MEDS: MEPERIDINE 50 MG TABLET PO PRN ×3 (07:55→20:14)
[2019-11-01] MEDS: FLUTICASONE PROPIONATE INH SCH ×2 (08:52→20:17)
[2019-11-01] MEDS: SALMETEROL INH SCH ×2 (08:52→20:17)
[2019-11-01] MEDS: PREGABALIN 100 MG CAPSULE PO SCH ×3 (08:54→20:14)
[2019-11-01] MEDS: FOLIC ACID 1 MG TABLET PO SCH (08:55)
[2019-11-01] MEDS: MAGNESIUM OXIDE 400 MG TABLET PO SCH (08:55)
[2019-11-01] MEDS: CLOPIDOGREL 75 MG TABLET PO SCH (08:55)
[2019-11-01] MEDS: SODIUM CHLORIDE FLUSH 10ML SYR IVF SCH ×2 (08:56→20:14)
[2019-11-01] MEDS: AMIODARONE 200 MG TABLET PO SCH ×2 (08:56→20:14)
[2019-11-01] MEDS: BUDESONIDE 0.5 MG/2 ML INHA INH SCH ×3 (10:10→21:13)
[2019-11-01 12:34] VITALS: BP 116/78
[2019-11-01] MEDS: FUROSEMIDE 40 MG TABLET PO SCH (15:14)
[2019-11-01] MEDS: WARFARIN 1 MG TABLET PO-COUM SCH (17:58)
[2019-11-01 19:15] VITALS: BP 126/75
[2019-11-01] MEDS: ATORVASTATIN 80 MG TABLET PO SCH (20:13)
[2019-11-01] MEDS: IRBESARTAN 150 MG TABLET PO SCH (20:13)
[2019-11-01] MEDS: LORazepam 1MG TABLET PO SCH (20:14)
[2019-11-01] MEDS: ALBUTEROL/IPRATROPIUM 2.5MG/0.5MG, 3 ML NPPB PRN (21:13)
[2019-11-01] MEDS: ENOXAPARIN 60 MG/0.6 ML SQ SCH (22:35)
[2019-11-01] MEDS: ENOXAPARIN 80 MG/0.8 ML SQ SCH (22:35)
[2019-11-01] MEDS: LIDODERM 5% PATCH TD PRN (22:35)
[2019-11-02 01:25] VITALS: BP 115/79
[2019-11-02] MEDS: MEPERIDINE 50 MG TABLET PO PRN ×4 (03:01→20:52)
[2019-11-02 05:08] VITALS: BP 108/68
[2019-11-02] MEDS: ASPIRIN 81 MG TABLET EC PO SCH (05:10)
[2019-11-02] MEDS: METOPROLOL SUCCINATE 25 MG TAB.ER.24H PO SCH (05:11)
[2019-11-02 05:41] LABS: INTERNATIONAL NORMALIZED RATIO 1.61 (0.93-1.1); PROTHROMBIN TIME 17.1 Seconds (9.6-11.5)
[2019-11-02 05:44] LABS: BASOPHILS # (AUTO) 0.02 x10^3/uL (0-0.1); BASOPHILS % (AUTO) 0 % (0-1); EOSINOPHILS # (AUTO) 0.16 x10^3/uL (0-0.4); EOSINOPHILS % (AUTO) 3 % (1-7); LYMPHOCYTES # (AUTO) 1.09 x10^3/uL (1-3.4); LYMPHOCYTES % (AUTO) 18 % (22-44); MD NO; MEAN CORPUSCULAR HEMOGLOBIN 32.8 pg (27.5-34.5); MEAN CORPUSCULAR VOLUME 96.4 fL (81-97); MEAN PLATELET VOLUME 8.3 fL (7.4-10.4); MONOCYTES % (AUTO) 10 % (2-9); NEUTROPHILS # (AUTO) 4.07 x10^3/uL (1.8-6.8); NEUTROPHILS % (AUTO) 69 % (42-75); PLATELET COUNT 176 x10^3/uL (130-400); RED BLOOD COUNT 2.88 x10^6/uL (4.38-5.82); RED CELL DISTRIBUTION WIDTH 14.4 % (9.4-14.8)
[2019-11-02 05:50] LABS: ALBUMIN 2.7 g/dL (3.4-5.0); ANION GAP 4 mmol/L (5-15); CHLORIDE 106 mmol/L (98-107)
[2019-11-02 05:54] LABS: ALANINE AMINOTRANSFERASE 29 U/L (12-78); ALKALINE PHOSPHATASE 80 U/L (45-117); BILIRUBIN,TOTAL 0.8 mg/dL (0.2-1.0); CREATININE 1.01 mg/dL (0.7-1.3); TOTAL PROTEIN 5.7 g/dL (6.4-8.2)
[2019-11-02 07:27] VITALS: BP 107/63
[2019-11-02] MEDS: FOLIC ACID 1 MG TABLET PO SCH (08:52)
[2019-11-02] MEDS: AMIODARONE 200 MG TABLET PO SCH ×2 (08:52→20:52)
[2019-11-02] MEDS: CLOPIDOGREL 75 MG TABLET PO SCH (08:52)
[2019-11-02] MEDS: PREGABALIN 100 MG CAPSULE PO SCH ×3 (08:52→20:51)
[2019-11-02] MEDS: MAGNESIUM OXIDE 400 MG TABLET PO SCH (08:52)
[2019-11-02] MEDS: SODIUM CHLORIDE FLUSH 10ML SYR IVF SCH ×2 (08:53→20:53)
[2019-11-02] MEDS: SALMETEROL INH SCH ×2 (09:00→20:53)
[2019-11-02] MEDS: BUDESONIDE 0.5 MG/2 ML INHA INH SCH ×2 (09:00→18:10)
[2019-11-02] MEDS: FLUTICASONE PROPIONATE INH SCH ×2 (09:00→20:53)
[2019-11-02] MEDS: ENOXAPARIN 60 MG/0.6 ML SQ SCH (12:25)
[2019-11-02] MEDS: ENOXAPARIN 80 MG/0.8 ML SQ SCH (12:25)
[2019-11-02 12:59] VITALS: BP 127/71
[2019-11-02] MEDS: FUROSEMIDE 40 MG TABLET PO SCH (14:28)
[2019-11-02] MEDS: WARFARIN 1 MG TABLET PO-COUM SCH (17:01)
[2019-11-02] MEDS: ALBUTEROL/IPRATROPIUM 2.5MG/0.5MG, 3 ML NPPB PRN (18:10)
[2019-11-02 18:52] VITALS: BP 107/58
[2019-11-02] MEDS: IRBESARTAN 150 MG TABLET PO SCH (20:50)
[2019-11-02] MEDS: ATORVASTATIN 80 MG TABLET PO SCH (20:51)
[2019-11-02] MEDS: LORazepam 1MG TABLET PO SCH (20:51)
[2019-11-02] MEDS: LIDODERM 5% PATCH TD PRN (21:01)
[2019-11-03 00:24] VITALS: BP 120/78
[2019-11-03] MEDS: ENOXAPARIN 60 MG/0.6 ML SQ SCH ×2 (00:41→12:01)
[2019-11-03] MEDS: ENOXAPARIN 80 MG/0.8 ML SQ SCH ×2 (00:42→12:01)
[2019-11-03] MEDS: MEPERIDINE 50 MG TABLET PO PRN ×3 (03:29→16:36)
[2019-11-03 05:34] LABS: INTERNATIONAL NORMALIZED RATIO 1.51 (0.93-1.1); PROTHROMBIN TIME 16.1 Seconds (9.6-11.5)
[2019-11-03] MEDS: ASPIRIN 81 MG TABLET EC PO SCH (06:23)
[2019-11-03] MEDS: METOPROLOL SUCCINATE 25 MG TAB.ER.24H PO SCH (06:24)
[2019-11-03 07:02] VITALS: BP 116/84
[2019-11-03] MEDS: CLOPIDOGREL 75 MG TABLET PO SCH (08:07)
[2019-11-03] MEDS: AMIODARONE 200 MG TABLET PO SCH (08:07)
[2019-11-03] MEDS: SODIUM CHLORIDE FLUSH 10ML SYR IVF SCH (08:10)
[2019-11-03] MEDS: PREGABALIN 100 MG CAPSULE PO SCH ×2 (08:10→16:32)
[2019-11-03] MEDS: MAGNESIUM OXIDE 400 MG TABLET PO SCH (08:10)
[2019-11-03] MEDS: FOLIC ACID 1 MG TABLET PO SCH (08:10)
[2019-11-03 08:14] VITALS: BP 131/95
[2019-11-03] MEDS: SALMETEROL INH SCH (09:00)
[2019-11-03] MEDS: FLUTICASONE PROPIONATE INH SCH (09:00)
[2019-11-03] MEDS: BUDESONIDE 0.5 MG/2 ML INHA INH SCH (09:00)
[2019-11-03] MEDS ORDERED: CLOP75TA PO (12:19)
[2019-11-03] MEDS ORDERED: ENOX80SY4 SQ (12:19)
[2019-11-03] MEDS ORDERED: ENOX60DI3 SQ (12:19)
[2019-11-03] MEDS ORDERED: METO25TA91 PO (12:19)
[2019-11-03] MEDS ORDERED: IRBE150T49 PO (12:19)
[2019-11-03] MEDS ORDERED: ASPI81TA45 PO (12:19)
[2019-11-03] MEDS ORDERED: ATOR-2 PO (12:19)
[2019-11-03] MEDS: FUROSEMIDE 40 MG TABLET PO SCH (13:25)
[2019-11-03 13:29] VITALS: BP 121/74
== END 2019-11-03 17:53 | disposition home or self-care (01) | DRG 226 ==
LOC: 5SO 13:49 → CCU 10-27 13:20 → 5SO 10-29 13:49
PROVIDERS: ADMIT Internal Medicine Infectious Disease; ATTEND Internal Medicine
PROC: 02PA3MZ Removal of Cardiac Lead from Heart, Percutaneous Approach (ICD-10-PCS; 2019-10-27)
PROC: 02HK3KZ Insertion of Defibrillator Lead into Right Ventricle, Percutaneous Approach (ICD-10-PCS; principal; 2019-10-27 11:00)
PROC: 0JH608Z Insertion of Defibrillator Generator into Chest Subcutaneous Tissue and Fascia, Open Approach (ICD-10-PCS; 2019-10-31)
PROC: 0JPT0PZ Removal of Cardiac Rhythm Related Device from Trunk Subcutaneous Tissue and Fascia, Open Approach (ICD-10-PCS; 2019-10-31)
DX: T82.111A Breakdown (mechanical) of cardiac pulse generator (battery), initial encounter (principal); I49.01 Ventricular fibrillation; I46.2 Cardiac arrest due to underlying cardiac condition; D68.59 Other primary thrombophilia; I47.2 Ventricular tachycardia; I25.810 Atherosclerosis of coronary artery bypass graft(s) without angina pectoris; D62 Acute posthemorrhagic anemia; I87.1 Compression of vein; T82.110A Breakdown (mechanical) of cardiac electrode, initial encounter; I25.5 Ischemic cardiomyopathy; I48.91 Unspecified atrial fibrillation; I25.10 Atherosclerotic heart disease of native coronary artery without angina pectoris; Z95.810 Presence of automatic (implantable) cardiac defibrillator; S20.212A Contusion of left front wall of thorax, initial encounter; M06.9 Rheumatoid arthritis, unspecified; L40.50 Arthropathic psoriasis, unspecified; Z88.6 Allergy status to analgesic agent; Z88.8 Allergy status to other drugs, medicaments and biological substances; Y71.2 Prosthetic and other implants, materials and accessory cardiovascular devices associated with adverse incidents; Y92.89 Other specified places as the place of occurrence of the external cause; E78.5 Hyperlipidemia, unspecified; I50.9 Heart failure, unspecified; M19.90 Unspecified osteoarthritis, unspecified site; Z79.01 Long term (current) use of anticoagulants; Z79.02 Long term (current) use of antithrombotics/antiplatelets; Z79.82 Long term (current) use of aspirin; Z79.899 Other long term (current) drug therapy; Z86.79 Personal history of other diseases of the circulatory system; Z87.891 Personal history of nicotine dependence; Z95.2 Presence of prosthetic heart valve
CPT/HCPCS: 33216; 33223; 33244; 33264; 36005; 36415; 71045; 71260; 80048; 80053; 80076; 83735; 84100; 85025; 85610; 87081; 93306; 93640; 93642; 94640; C1769; C1892; C1895; G0378; J0171; J0690; J1100; J1170; J1650; J2250; J2405; J2704; J3010; J7620; J7626; Q9967; C1882; J2175; J2270; J7040